=== PATIENT | female | born 1955 | race American Indian/Alaskan Native ===

== ENCOUNTER 2018-09-28 10:13 | Emergency (ER) | payer BC ==
[2018-09-28 10:34] VITALS: TEMP 97.5
--- NOTE | 2018-09-28 11:24 | CT ---
Date of service: 09/28/2018 PROCEDURE: CT HEAD WITHOUT CONTRAST. HISTORY: dizziness COMPARISON: None available. TECHNIQUE: Axial computed tomography images were obtained through the head/brain without intravenous contrast. Radiation dose: Total exam DLP = 1164.72 mGy-cm. This CT exam was performed using one or more of the following dose reduction techniques: Automated exposure control, adjustment of the mA and/or kV according to patient size, and/or use of iterative reconstruction technique. FINDINGS: HEMORRHAGE: No intracranial hemorrhage. BRAIN: No mass effect or edema. Severe chronic microvascular changes are seen in the deep white matter bilaterally. No acute findings VENTRICLES: Unremarkable. No hydrocephalus. CALVARIUM: Unremarkable. PARANASAL SINUSES: Unremarkable as visualized. No significant inflammatory changes. MASTOID AIR CELLS: Unremarkable as visualized. No inflammatory changes. OTHER FINDINGS: None. IMPRESSION: Severe chronic microvascular changes are seen in the deep white matter bilaterally. No acute findings
[2018-09-28 11:27] LABS: BASO # 0.02 K/mm3 (0.0-2.0); BASO % 0.3 % (0.0-3.0); EOS # 0.1 (0.0-0.7); EOS % 1.2 % (1.5-5.0); HEMOGLOBIN 12.1 g/dL (12.0-16.0); LYMPH # 2.3 (1.2-3.4); LYMPH % 39.2 % (22.0-35.0); MEAN CELL VOLUME 76.7 fl (80.0-105.0); MEAN CORPUSCULAR HEMOGLOBIN 23.9 pg (25.0-35.0); MEAN CORPUSCULAR HGB CONC 31.2 g/dl (31.0-37.0); MEAN PLATELET VOLUME 9.7 fl (7.0-11.0); MONO # 0.5 (0.1-0.6); MONO % 9.4 % (1.0-6.0); RBC 5.06 10^6/uL (3.5-6.1); RED CELL DISTRIBUTION WIDTH 15.4 % (11.5-14.5); WHITE BLOOD COUNT 5.8 10^3/uL (4.5-11.0)
[2018-09-28 11:34] LABS: URINE APPEARANCE CLEAR (CLEAR); URINE BILIRUBIN NEGATIVE (NEGATIVE); URINE BLOOD NEGATIVE (NEGATIVE); URINE COLOR YELLOW (YELLOW); URINE GLUCOSE (UA) NEGATIVE (NEGATIVE); URINE LEUKOCYTE ESTERASE TRACE Leu/uL (NEGATIVE); URINE PROTEIN NEGATIVE mg/dL (<30 mg/dL); URINE UROBILINOGEN 0.2 E.U./dL (<1 E.U./dL)
--- NOTE | 2018-09-28 11:34 | ED PDOC ---
Arrival/HPI - General Chief Complaint: Dizziness/Lightheaded Time Seen by Provider: 09/28/18 10:16 Historian: Patient - History of Present Illness Narrative History of Present Illness (Text): 09/28/18 11:31 63-year-old female with no past medical history presents today with lightheadedness and generalized fatigue. Patient states for the past 6 days she has not been feeling well and yesterday she developed lightheadedness and a feeling as if she was going to pass out. Patient states at that same time she developed pain in the epigastric region which she described as feeling as if something was stuck. Patient denies changes in appetite. Denies trauma or injury. She denies chest pain or shortness of breath at present time. She denies any back pain. No urinary symptoms. Patient's states she is just been fatigued Past Medical History - Provider Review Nursing Documentation Reviewed: Yes - Travel History Have you recently traveled outside [place] w/in the past 3 mons?: No - Cardiac Hx Cardiac Disorders: Yes Hx Hypertension: Yes (not currently on medication) - Pulmonary Hx Respiratory Disorders: No - Neurological Hx Neurological Disorder: No - HEENT Hx HEENT Disorder: No - Renal Hx Renal Disorder: No - Endocrine/Metabolic Hx Endocrine Disorders: No - Hematological/Oncological Hx Blood Disorders: No - Integumentary Hx Dermatological Disorder: No - Musculoskeletal/Rheumatological Hx Musculoskeletal Disorders: No - Gastrointestinal Hx Gastrointestinal Disorders: No - Genitourinary/Gynecological Hx Genitourinary Disorders: No - Psychiatric Hx Psychophysiologic Disorder: No Hx Substance Use: Yes (marijuana) - Surgical History Hx Section: Yes Family/Social History - Physician Review Nursing Documentation Reviewed: Yes Family/Social History: Unknown Family HX Smoking Status: Never Smoked Hx Alcohol Use: No Hx Substance Use: Yes (marijuana) Allergies/Home Meds Allergies/Adverse Reactions: Allergies aspirin Allergy (Verified 09/28/18 13:26) RASH Penicillins Allergy (Verified 09/28/18 10:47) ANAPHYLAXIS Review of Systems - Review of Systems Constitutional: Fatigue. absent: Fevers Eyes: absent: Vision Changes, Photophobia, Eye Pain ENT: absent: Sore Throat, Sinus Congestion Respiratory: absent: SOB, Cough Cardiovascular: Other (chest/epigastric discomfort yesterday). absent: Chest Pain, Palpitations Gastrointestinal: absent: Abdominal Pain, Constipation, Diarrhea, Nausea, Vomiting Genitourinary Female: absent: Dysuria, Frequency, Hematuria Musculoskeletal: absent: Arthralgias, Back Pain, Neck Pain Skin: absent: Rash, Pruritis Neurological: Dizziness. absent: Headache, Focal Weakness, Speech Changes Psychiatric: absent: Anxiety, Depression Physical Exam Vital Signs Reviewed: Yes Vital Signs Temp Pulse Resp BP Pulse Ox 09/28/18 10:34 97.5 F L 79 17 165/96 H 98 09/28/18 10:29 97.5 F L 79 17 165/96 H 98 Temperature: Afebrile Blood Pressure: Hypertensive Pulse: Regular Respiratory Rate: Normal Appearance: Positive for: Well-Appearing, Non-Toxic, Comfortable Pain Distress: None Mental Status: Positive for: Alert and Oriented X 3 - Systems Exam Head: Present: Atraumatic Mouth: Present: Moist Mucous Membranes Neck: Present: Normal Range of Motion Respiratory/Chest: Present: Clear to Auscultation, Good Air Exchange. No: Respiratory Distress, Accessory Muscle Use Cardiovascular: Present: Regular Rate and Rhythm, Normal S1, S2. No: Murmurs Abdomen: No: Tenderness, Distention, Rebound, Guarding Back: Present: Normal Inspection. No: CVA Tenderness, Midline Tenderness, Paraspinal Tenderness Upper Extremity: Present: Normal ROM Lower Extremity: Present: Normal ROM Neurological: Present: GCS=15, Speech Normal Skin: Present: Warm, Dry, Normal Color. No: Rashes Psychiatric: Present: Alert, Oriented x 3 Medical Decision Making ED Course and Treatment: 09/28/18 11:35 63-year-old female complaining dizziness and fatigue with vague epigastric pain yesterday CBC wnl CMP wnl Troponin wnl EKG: Normal sinus rhythm at 79 bpm normal axis normal intervals no ST elevations Chest x-ray within normal limits Head CT:FINDINGS: HEMORRHAGE: No intracranial hemorrhage. BRAIN: No mass effect or edema. Severe chronic microvascular changes are seen in the deep white matter bilaterally. No acute findings VENTRICLES: Unremarkable. No hydrocephalus. CALVARIUM: Unremarkable. PARANASAL SINUSES: Unremarkable as visualized. No significant inflammatory changes. MASTOID AIR CELLS: Unremarkable as visualized. No inflammatory changes. OTHER FINDINGS: None. IMPRESSION: Severe chronic microvascular changes are seen in the deep white matter bilaterally. No acute findings Urinalysis: + leukocytes Patient reassessment: Patient is resting comfortably in the emergency room. I discussed all results in depth with the patient and advised patient that I like to admit her to the hospital for evaluation of near syncope, chest pain and urinary tract infection. Patient and her state that they do not want to stay in the hospital overnight and that they will follow-up with her own apartment maintenance manager. Patient was made aware of the risk of disability heart attack syncope or worsening of symptoms. Patient was made aware that she can return at any point in time if she wishes to continue her care. ASA not given as patient now states she is allergic to ASA. pt given macrobid for UTI. Patient has been advised to not leave the emergency room but has decided to go AGAINST MEDICAL ADVICE. The patient possesses capacity to make decisions and has voiced understanding to all my warnings of potential worsening of the condition for which medical care was sought. I have discussed all known and potential risks and consequences to the patient leaving AGAINST MEDICAL ADVICE. Patient is leaving against medical advise. AMA form signed. witness by NAYA olson Impression: Near syncope, chest pain, urinary tract infection Return if you wish to continue your care Macrobid 1 tablet twice daily x10 days Increase fluids Follow-up with a apartment maintenance manager as soon as possible Follow-up with a primary care physician as soon as possible Return immediately if any other concerning symptoms develop - RAD Interpretation Radiology Orders: 09/28/18 10:48 HEAD W/O CONTRAST [CT] Stat CHEST PORTABLE [RAD] Stat Disposition/Present on Arrival - Present on Arrival Any Indicators Present on Arrival: No History of DVT/PE: No History of Uncontrolled Diabetes: No Urinary Catheter: No History of Decub. Ulcer: No History Surgical Site Infection Following: None - Disposition Have Diagnosis and Disposition been Completed?: Yes Diagnosis: Near syncope, Chest pain, Urinary tract infection Disposition: AGAINST MEDICAL ADVICE Disposition Time: 13:19 Patient Plan: Other (AMA) Patient Problems: Current Active Problems Problem Status Onset Chest pain Acute Near syncope Acute Urinary tract infection Acute Condition: UNKNOWN Discharge Instructions (ExitCare): Chest Pain (ED), Near Fainting (DC), Urinary Tract Infections in Adults Additional Instructions: Return if you wish to continue your care Macrobid 1 tablet twice daily x10 days Increase fluids Follow-up with a apartment maintenance manager as soon as possible Follow-up with a primary care physician as soon as possible Return immediately if any other concerning symptoms develop Prescriptions: Nitrofurantoin Macrocrystals [Macrobid] 100 mg PO BID #20 cap Referrals: Shelby Ortiz MD [Medical Doctor] - Follow up with primary David Martínez MD [Staff Provider] - Follow up with primary Jasper Espino MD [Staff Provider] - Follow up with primary Forms: [employer] (Japanese), WORK NOTE
[2018-09-28 11:36] LABS: ALB/GLOB RATIO 1.2 (1.1-1.8); ALBUMIN 4.2 g/dL (3.0-4.8); ALT/SGPT 12 U/L (7-56); AST/SGOT 27 U/L (14-36); BLOOD UREA NITROGEN 12 mg/dL (7-21); CALCIUM 9.2 mg/dL (8.4-10.5); GFR NON-AFRICAN AMERICAN > 60; LIPASE 68 U/L (23-300)
[2018-09-28 11:40] LABS: URINE BACTERIA MANY /hpf
[2018-09-28 11:48] LABS: TROPONIN I < 0.01 ng/mL
[2018-09-28 12:39] VITALS: BP 156/96; PULSE 76; RESP 16; O2SAT 97
--- NOTE | 2018-09-28 12:49 | RAD ---
Date of service: 09/28/2018 HISTORY: chest pain/dizziness COMPARISON: No prior. TECHNIQUE: 1 view obtained. FINDINGS: LUNGS: No active pulmonary disease. PLEURA: No significant pleural effusion identified, no pneumothorax apparent. CARDIOVASCULAR: No aortic atherosclerotic calcification present. Normal cardiac size. No pulmonary vascular congestion. OSSEOUS STRUCTURES: No significant abnormalities. VISUALIZED UPPER ABDOMEN: Normal. OTHER FINDINGS: None. IMPRESSION: No active disease.
--- NOTE | 2018-09-28 15:35 | CARD ---
APPROVED REPORT Date of service: 09/28/2018 EKG Measurement Heart [id number] <Conclusion> Normal sinus rhythm Normal ECG
== END 2018-09-28 13:31 | disposition left against medical advice (07) ==
LOC: ED 10:13
DX: R55 Syncope and collapse (principal); R07.9 Chest pain, unspecified; N39.0 Urinary tract infection, site not specified; I10 Essential (primary) hypertension